=== PATIENT | female | born 1975 ===

== ENCOUNTER 2021-03-28 13:34 | Emergency (ER) | payer OTHER ==
[2021-03-28 13:43] VITALS: BP 167/89
[2021-03-28] MEDS ORDERED: ASPIRIN 325 MG TAB PO ONE (14:01)
--- NOTE | 2021-03-28 14:45 | Vascular Lab Report ---
DUPLEX DOPPLER LOWER EXTREMITY VEINS, LEFT INDICATION: left calf pain. TECHNIQUE: Duplex doppler imaging was performed through the veins of the left lower extremity using venous compr ession and other maneuvers. COMPARISON: No relevant prior imaging study available. FINDINGS: Left Common femoral vein: Negative. Left Superficial femoral vein: Negative. Left Popliteal vein: Negative. Left Calf veins: Negative. Additional findings: Small popliteal fossa cyst noted.. IMPRESSION: 1. No sonographic evidence for DVT in the left lower extremity. Signer Name: Sagar Back MD Signed: 03/28/2021 2:41 PM Workstation Name: [id number]
--- NOTE | 2021-03-28 15:03 | Emergency Department Report ---
ED Chest Pain HPI - General Chief Complaint: Chest Pain Stated Complaint: CHEST PAIN Time Seen by Provider: 03/28/21 14:00 Source: patient, family Mode of arrival: Ambulatory Limitations: Language Barrier - History of Present Illness Initial Comments: [place] interpretation by patient's daughter with the patient's permission Patient is a 46-year-old female presents emergency room complaints of chest pain that began a week ago. She states initially she was having left-sided chest pain a week ago but that resolved. she states over the last few days she began having substernal chest pain which she describes as a tightness and she states it is painful when she presses in this region. She states her pain increases with taking a deep breath. She states that she is also been having left calf pain. She denies any leg swelling, hemoptysis, cough, fever, nausea, vomiting, diarrhea, radiation of the pain, shortness of breath. Patient denies any past medical history. She has an allergy to penicillin. She is a current tobacco smoker. She states that her father had an [place] at 58 years old. She denies any recent travel, recent surgery, hormone use. - Related Data Previous Rx's Medication Instructions Recorded Last Taken Type Naproxen 375 mg PO BID PRN #14 tablet 03/28/21 Unknown Rx methOCARBAMOL [Robaxin TAB] 500 mg PO BID PRN #14 tab 03/28/21 Unknown Rx Allergies Allergy/AdvReac Type Severity Reaction Status Date / Time Penicillins Allergy Unknown Verified 03/28/21 13:41 Heart Score - HEART Score History: Slightly suspicious EKG: Normal Age: < 45 Risk factors: > 3 risk factors or hx of atherosclerotic disease Troponin: < normal limit HEART Score: 2 - EKG Read Time Time EKG Completed: 13:50 EKG Read Time: 13:54 ED Review of Systems ROS: Stated complaint: CHEST PAIN Other details as noted in HPI Comment: All other systems reviewed and negative ED Past Medical Hx - Past Medical History Previous Medical History?: No - Surgical History Past Surgical History?: No - Medications Home Medications: Home Medications Medication Instructions Recorded Confirmed Last Taken Type Naproxen 375 mg PO BID PRN #14 tablet 03/28/21 Unknown Rx methOCARBAMOL [Robaxin TAB] 500 mg PO BID PRN #14 tab 03/28/21 Unknown Rx ED Physical Exam - General Limitations: No Limitations General appearance: alert, in no apparent distress - Head Head exam: Present: atraumatic, normocephalic - Eye Eye exam: Present: normal appearance - ENT ENT exam: Present: mucous membranes moist - Respiratory Respiratory exam: Present: normal lung sounds bilaterally, chest wall tenderness (reproducible mid sternal chest wall ttp , no crepitus, no deformity, no edema). Absent: respiratory distress, wheezes, rales, rhonchi, stridor, accessory muscle use, decreased breath sounds, prolonged expiratory - Cardiovascular Cardiovascular Exam: Present: regular rate, normal rhythm, normal heart sounds. Absent: systolic murmur, diastolic murmur, rubs, gallop - Extremities Exam Extremities exam: Present: other (mild ttp to the left calf, FROM of the BLE, no edema, no skin changes, neurovascularly intact BLE) - Neurological Exam Neurological exam: Present: alert, oriented X3 - Psychiatric Psychiatric exam: Present: normal affect, normal mood - Skin Skin exam: Present: warm, dry, intact ED Course Vital Signs 03/28/21 13:41 Temperature 97 F L Pulse Rate 75 Respiratory 16 Rate Blood Pressure 167/89 [Left] O2 Sat by Pulse 97 Oximetry GUSTABO score - Gustabo Score Age > 65: (0) No Aspirin use within the Past 7 Days: (0) No 3 or more CAD Risk Factors: (1) Yes 2 or more Angina events in past 24 hrs: (0) No Known CAD with more than 50% Stenosis: (0) No Elevated Cardiac Markers: (0) No ST Deviation Greater than 0.5mm: (0) No GUSTABO Score: 1 ED Medical Decision Making - Lab Data Result diagrams: 03/28/21 14:42 03/28/21 14:42 - EKG Data EKG shows normal: sinus rhythm, axis, intervals, QRS complexes, ST-T waves Rate: normal - Radiology Data Radiology results: report reviewed Ordering Physician: JOSE TIDWELL Date of Service: 03/28/21 Procedure(s): XR chest routine 2V Accession Number(s): [id number] cc: JOSE TIDWELL Fluoro Time In Minutes: CHEST 2 VIEWS INDICATION / CLINICAL INFORMATION: Chest pain x2 weeks. COMPARISON: None available. FINDINGS: SUPPORT DEVICES: None. HEART / MEDIASTINUM: No significant abnormality. LUNGS / PLEURA: No significant pulmonary abnormality. No significant pleural effusion. No pneumothorax. ADDITIONAL FINDINGS: No significant additional findings. IMPRESSION: 1. No acute abnormality of the chest. Signer Name: Torrey Ramos MD Signed: 03/28/2021 4:51 PM Workstation Name: [id number] Transcribed By: MORALES Dictated By: Torrey Ramos MD Electronically Authenticated By: Torrey Ramos MD Signed Date/Time: 03/28/211650 DD/ 50 TD/TT: Ordering Physician: JOSE TIDWELL Date of Service: 03/28/21 Procedure(s): VL venous duplex LE LT Accession Number(s): [id number] cc: JOSE TIDWELL DUPLEX DOPPLER LOWER EXTREMITY VEINS, LEFT INDICATION: left calf pain. TECHNIQUE: Duplex doppler imaging was performed through the veins of the left lower extremity using venous compression and other maneuvers. COMPARISON: No relevant prior imaging study available. FINDINGS: Left Common femoral vein: Negative. Left Superficial femoral vein: Negative. Left Popliteal vein: Negative. Left Calf veins: Negative. Additional findings: Small popliteal fossa cyst noted.. IMPRESSION: 1. No sonographic evidence for DVT in the left lower extremity. Signer Name: Sagar Back MD Signed: 03/28/2021 2:41 PM Workstation Name: [id number] Transcribed By: STEPHANIE Dictated By: Sagar Back MD Electronically Authenticated By: Sagar Back MD Signed Date/Time: 03/28/211440 DD/ 39 TD/TT: - Medical Decision Making [place] interpretation by patient's daughter with the patient's permission Patient is a 46-year-old female presents emergency room complaints of chest pain that began a week ago. She states initially she was having left-sided chest pain a week ago but that resolved. she states over the last few days she began having substernal chest pain which she describes as a tightness and she states it is painful when she presses in this region. She states her pain increases wi th taking a deep breath. She states that she is also been having left calf pain. She denies any leg swelling, hemoptysis, cough, fever, nausea, vomiting, diarrhea, radiation of the pain, shortness of breath. Patient denies any past medical history. She has an allergy to penicillin. She is a current tobacco smoker. She states that her father had an [place] at 58 years old. She denies any recent travel, recent surgery, hormone use. Vitals are stable. On exam:reproducible mid sternal chest wall ttp , no crepitus, no deformity, no edema, mild ttp to the left calf, FROM of the BLE, no edema, no skin changes, neurovascularly intact BLE . EKG is within normal limits. Labs are normal. Troponin is negative x2. D-dimer is negative, patient is PERC criteria negative for PE. Heart score is 2, low risk for cardiac event. Pain is reproducible do not suspect ACS at this time. CXR: 1. No acute abnormality of the chest. doppler LLE: 1. No sonographic evidence for DVT in the left lower extremity. Symptoms could be related to costochondritis versus pleuritis. Advised patient Please take medication as prescribed. Follow-up with your primary care doctor. Follow-up with a radiology physician assistant. Return to emergency room for any new or worsening symptoms. Critical care attestation.: If time is entered above; I have spent that time in minutes in the direct care of this critically ill patient, excluding procedure time. ED Disposition Clinical Impression: Chest pain Qualifiers: Chest pain type: unspecified Qualified Code(s): R07.9 - Chest pain, unspecified Disposition: 01 HOME / SELF CARE / HOMELESS Is pt being admited?: No Does the pt Need Aspirin: No Condition: Stable Instructions: Nonspecific Chest Pain, Adult, Costochondritis Additional Instructions: Please take medication as prescribed. Follow-up with your primary care doctor. Follow-up with a radiology physician assistant. Return to emergency room for any new or worsening symptoms. Laverne la medicacin segn lo prescrito. Juan Ramon un seguimiento con scott mdico de atencin primaria. Seguimiento con un cardilogo. Regrese a la lluvia de emergencias por cualquier sntoma nuevo o que empeore. Prescriptions: Naproxen 375 mg PO BID PRN #14 tablet PRN Reason: pain methOCARBAMOL [Robaxin TAB] 500 mg PO BID PRN #14 tab PRN Reason: muscle spasm/pain Referrals: ANTONIO ZAMBRANO MD [Staff Physician] - 3-5 Days PANKAJ STAHL MD [Staff Physician] - 3-5 Days (radiology physician assistant (ux specialist)) Forms: Work/School Release Form(ED) Time of Disposition: 17:48 Print Language: NIGERIEN
[2021-03-28 15:27] LABS: Basophils # (Auto) 0.1 K/mm3 (0.0-0.1); Basophils % (Auto) 0.5 % (0.0-1.8); Eosinophils # (Auto) 0.2 K/mm3 (0.0-0.4); Eosinophils % (Auto) 1.8 % (0.0-4.3); Hematocrit 39.1 % (30.3-42.9); Hemoglobin 13.5 gm/dl (10.1-14.3); Lymphocytes # (Auto) 2.5 K/mm3 (1.2-5.4); Lymphocytes % (Auto) 24.6 % (13.4-35.0); Mean Corpuscular HGB Conc 35 % (30-34); Mean Corpuscular Volume 87 fl (79-97); Monocytes # (Auto) 0.7 K/mm3 (0.0-0.8); Monocytes % (Auto) 6.5 % (0.0-7.3); Platelet Count 283 K/mm3 (140-440); Red Blood Count 4.51 M/mm3 (3.65-5.03)
[2021-03-28 16:14] LABS: Alanine Aminotransferase 15 units/L (7-56); Blood Urea Nitrogen 10 mg/dL (7-17); Calcium 9.3 mg/dL (8.4-10.2); Hemolysis Index 35
[2021-03-28 16:27] LABS: BUN/Creatinine Ratio 20
--- NOTE | 2021-03-28 16:56 | XRay Report ---
CHEST 2 VIEWS INDICATION / CLINICAL INFORMATION: Chest pain x2 weeks. COMPARISON: None available. FINDINGS: SUPPORT DEVICES: None. HEART / MEDIASTINUM: No significant abnormality. LUNGS / PLEURA: No significant pulmonary abnormality. No significant pleural effusion. No pneumothora x. ADDITIONAL FINDINGS: No significant additional findings. IMPRESSION: 1. No acute abnormality of the chest. Signer Name: Torrey Ramos MD Signed: 03/28/2021 4:51 PM Workstation Name: [id number]
--- NOTE | 2021-03-29 10:58 | Electrocardiograph Report ---
[facility] Test Date: 2021-03-28 Test Time: 13:50:20 Pat Name: BIBI NICOLAS Department: Room: Gender: F Vp Of Customer Experience Strategy: JUANITO : 1975 Requested By: MATIAS JONES Order Number: [id number] Reading MD: Taurus Easton Measurements Intervals [place] Rate: 64 P: 35 UT: 158 QRS: 55 QRSD: 81 T: 57 QT: 401 QTc: 414 Interpretive Statements Sinus rhythm No previous ECG available for comparison Electronically Signed On 03-29-2021 10:57:42 EDT by Taurus Easton
== END 2021-03-28 18:49 | disposition home or self-care (01) ==
LOC: ED 13:34
DX: R07.9 Chest pain, unspecified (principal); F17.290 Nicotine dependence, other tobacco product, uncomplicated; Z88.0 Allergy status to penicillin
CPT/HCPCS: 36415; 71046; 80053; 84484; 84703; 85025; 85379; 93005; 99284

== ENCOUNTER 2021-12-14 12:21 | Emergency (ER) | payer OTHER ==
[2021-12-14 13:38] VITALS: BP 129/65
[2021-12-14 14:33] LABS: Basophils # (Auto) 0.1 K/mm3 (0.0-0.1); Basophils % (Auto) 0.4 % (0.0-1.8); Eosinophils # (Auto) 0.1 K/mm3 (0.0-0.4); Eosinophils % (Auto) 0.9 % (0.0-4.3); Hematocrit 40.3 % (30.3-42.9); Hemoglobin 13.5 gm/dl (10.1-14.3); Lymphocytes # (Auto) 2.6 K/mm3 (1.2-5.4); Lymphocytes % (Auto) 17.9 % (13.4-35.0); Mean Corpuscular HGB Conc 34 % (30-34); Mean Corpuscular Volume 85 fl (79-97); Monocytes # (Auto) 1.2 K/mm3 (0.0-0.8); Monocytes % (Auto) 8.5 % (0.0-7.3); Platelet Count 286 K/mm3 (140-440); Red Blood Count 4.73 M/mm3 (3.65-5.03)
[2021-12-14 14:48] LABS: Alanine Aminotransferase 14 units/L (7-56); Albumin 4.1 g/dL (3.9-5); Blood Urea Nitrogen 10 mg/dL (7-17); Calcium 9.5 mg/dL (8.4-10.2); Hemolysis Index 2
[2021-12-14 14:53] LABS: BUN/Creatinine Ratio 20
[2021-12-14 20:12] LABS: HCG Qualitative,Urine Negative (Negative)
[2021-12-14 20:38] LABS: Mucus,Urine FEW /HPF
[2021-12-14 20:45] LABS: Color,Urine Yellow (Yellow)
[2021-12-14 20:46] LABS: Blood,Urine Moderate (Negative)
--- NOTE | 2021-12-14 20:48 | Emergency Department Report ---
ED Abdominal Pain HPI - General Chief Complaint: Abdominal Pain Stated Complaint: URINE INFECTION Source: patient Mode of arrival: Ambulatory Limitations: No Limitations - History of Present Illness Initial Comments: Patient is a 46-year-old female with a history of hyperlipidemia and tcj-hvhshgs-nujrttvde diabetes who presents to the ED with complaint of acute onset persistent urinary frequency and urgency, dysuria, suprapubic pain that radiates to the lower back and right flank for the last 1 week. Patient states that she has been taking ywjz-xpc-ejmuxln medications with no relief. Patient denies vaginal bleeding, vaginal discharge, chest pain, shortness of breath, fe walt, chills, cough, sore throat, traumatic injury or heavy lifting, vomiting, sore throat, headache, dizziness or syncope. MD Complaint: abdominal pain -: week(s) (1) Location: suprapubic, R flank Radiation: suprapubic, R flank Migration to: no migration Severity: severe Severity scale (0 -10): 8 Quality: aching, sharp Consistency: constant Improves With: nothing Worsens With: nothing Associated Symptoms: denies other symptoms, nausea. denies: vomiting, diarrhea, fever, chills, constipation, hematemesis, hematochezia, melena, hematuria, anorexia, syncope, other - Related Data Previous Rx's Medication Instructions Recorded Last Taken Type Naproxen 375 mg PO BID PRN #14 tablet 03/28/21 Unknown Rx methOCARBAMOL [Robaxin TAB] 500 mg PO BID PRN #14 tab 03/28/21 Unknown Rx Ibuprofen [Motrin] 800 mg PO Q8HR PRN #30 tablet 12/14/21 Unknown Rx Ondansetron [Zofran Odt] 4 mg PO Q8HR PRN #15 tab.rapdis 12/14/21 Unknown Rx Sulfamethoxazole/Trimethoprim 1 each PO Q12H #20 tab 12/14/21 Unknown Rx [Bactrim DS TAB] Allergies Allergy/AdvReac Type Severity Reaction Status Date / Time Penicillins Allergy Unknown Verified 03/28/21 13:41 ED Review of Systems ROS: Stated complaint: URINE INFECTION Other details as noted in HPI Constitutional: denies: chills, fever Eyes: denies: eye pain, eye discharge, vision change ENT: denies: ear pain, throat pain Respiratory: denies: cough, shortness of breath, wheezing Cardiovascular: denies: chest pain, palpitations Endocrine: no symptoms reported Gastrointestinal: abdominal pain, nausea. denies: diarrhea Genitourinary: urgency, dysuria, frequency. denies: discharge Musculoskeletal: back pain (LOWER). denies: joint swelling, arthralgia Skin: denies: rash, lesions Neurological: denies: headache, weakness, paresthesias Psychiatric: denies: anxiety, depression Hematological/Lymphatic: denies: easy bleeding, easy bruising ED Past Medical Hx - Past Medical History Previous Medical History?: Yes Hx Diabetes: Yes Additional medical history: hyperlipidemia - Medications Home Medications: Home Medications Medication Instructions Recorded Confirmed Last Taken Type Naproxen 375 mg PO BID PRN #14 tablet 03/28/21 Unknown Rx methOCARBAMOL [Robaxin TAB] 500 mg PO BID PRN #14 tab 03/28/21 Unknown Rx Ibuprofen [Motrin] 800 mg PO Q8HR PRN #30 tablet 12/14/21 Unknown Rx Ondansetron [Zofran Odt] 4 mg PO Q8HR PRN #15 tab.rapdis 12/14/21 Unknown Rx Sulfamethoxazole/Trimethoprim 1 each PO Q12H #20 tab 12/14/21 Unknown Rx [Bactrim DS TAB] ED Physical Exam - General Limitations: No Limitations General appearance: alert, in no apparent distress - Head Head exam: Present: atraumatic, normocephalic, normal inspection - Eye Eye exam: Present: normal appearance, PERRL, EOMI Pupils: Present: normal accommodation - ENT ENT exam: Present: normal exam, normal orophraynx, mucous membranes moist, TM's normal bilaterally, normal external ear exam - Neck Neck exam: Present: normal inspection, full ROM - Respiratory Respiratory exam: Present: normal lung sounds bilaterally. Absent: respiratory distress, wheezes, rales, rhonchi, stridor, chest wall tenderness, accessory muscle use, decreased breath sounds, prolonged expiratory - Cardiovascular Cardiovascular Exam: Present: regular rate, normal rhythm, normal heart sounds. Absent: systolic murmur, diastolic murmur, rubs, gallop - GI/Abdominal GI/Abdominal exam: Present: soft, normal bowel sounds. Absent: tenderness, guarding, hyperactive bowel sounds, hypoactive bowel sounds, organomegaly, mass - Extremities Exam Extremities exam: Present: normal inspection, full ROM, normal capillary refill. Absent: tenderness - Back Exam Back exam: Present: normal inspection, full ROM. Absent: tenderness, CVA tenderness (R), CVA tenderness (L), muscle spasm, paraspinal tenderness, verteb ral tenderness - Neurological Exam Neurological exam: Present: alert, oriented X3, CN II-XII intact, normal gait, reflexes normal - Psychiatric Psychiatric exam: Present: normal affect, normal mood - Skin Skin exam: Present: warm, dry, intact, normal color. Absent: rash ED Course Vital Signs 12/14/21 13:34 Temperature 98.7 F Pulse Rate 83 Respiratory 18 Rate Blood Pressure 129/65 [Left] O2 Sat by Pulse 99 Oximetry ED Medical Decision Making - Lab Data Result diagrams: 12/14/21 13:46 12/14/21 13:46 - Medical Decision Making This is a 46-year-old female with a history of hyperlipidemia and err-cmgfebk-dktlcldop diabetes who presents to the ED with complaint of acute onset persistent urinary frequency and urgency, dysuria, suprapubic pain that radiates to the lower back and right flank for the last 1 week. Patient states that she has been taking mrlj-xsc-ilttnfc medications with no relief. In the ED, patient is alert and oriented x3 and is not in any distress. Patient is hemodynamically stable. Lab test results were reviewed and showed acute leukocytosis of 14,400 and significant in urinalysis. Patient was uurinary tract infection. Patient was treated for pain in the ED and also given initial Rocephin 1 g intramuscular injection. On reevaluation, patient's pain is well controlled medication. Patient will discharge home on pain medications and antibiotics and advised to follow-up with her primary care physician in 7 to 10 days for reevaluation or return to the ED immediately if symptoms get worse. - Differential Diagnosis UTI; Kidney stones; Colitis; Diverticulitis; Muscle spasm Critical care attestation.: If time is entered above; I have spent that time in minutes in the direct care of this critically ill patient, excluding procedure time. ED Disposition Clinical Impression: Acute right flank pain, Acute urinary tract infection Disposition: HOME / SELF CARE / HOMELESS Is pt being admited?: No Does the pt Need Aspirin: No Condition: Stable Instructions: Abdominal Pain (ED), Flank Pain, Adult, Nttf-jl-Gyud, Abdominal Pain, Adult, [id number]-bo-Ffwp, Urinary Tract Infection, Adult, Ycdu-ut-Rpjl Additional Instructions: All lab test results were reviewed and are all nonactionable except for urinalysis that showed significant urinary tract infection. Therefore take medication with food, drink plenty of fluids and follow-up with your primary care physician in 7 to 10 days for reevaluation. Return to the ED immediately if symptoms get worse. Prescriptions: Sulfamethoxazole/Trimethoprim [Bactrim DS TAB] 1 each PO Q12H #20 tab Ibuprofen [Motrin] 800 mg PO Q8HR PRN #30 tablet PRN Reason: Pain , Severe (7-10) Ondansetron [Zofran Odt] 4 mg PO Q8HR PRN #15 tab.rapdis PRN Reason: Nausea Referrals: [facility] [Provider Group] - 3-5 Days Forms: Work/School Release Form(ED) Time of Disposition: 20:56 Print Language: ALBANIAN
[2021-12-14 20:50] LABS: Bilirubin,Urine Negative (Negative)
[2021-12-14] MEDS ORDERED: LIDOCAINE-MPF (1%) 10 MG/1 ML VIAL 5 ML INFILTRATI ONE (20:52)
[2021-12-14] MEDS ORDERED: ONDANSETRON 4 MG ODT TAB PO ONE (20:52)
[2021-12-14] MEDS ORDERED: KETOROLAC 60 MG/2 ML INJ IM ONE (20:52)
[2021-12-14] MEDS ORDERED: diphenhydrAMINE 25 MG CAP PO ONE (20:53)
[2021-12-14 20:54] LABS: WBC,Urine > 182.0 /HPF (0.0-6.0)
== END 2021-12-15 00:02 | disposition home or self-care (01) ==
LOC: ED 12:21
DX: N39.0 Urinary tract infection, site not specified (principal); R10.2 Pelvic and perineal pain; R10.31 Right lower quadrant pain; E11.9 Type 2 diabetes mellitus without complications; E78.5 Hyperlipidemia, unspecified; Z88.0 Allergy status to penicillin
CPT/HCPCS: 36415; 80053; 81001; 81025; 85025; 96372; 99283; J0696; J1885; J3490; Q0162